=== PATIENT | male | born 1975 | race African-American/Black ===

== ENCOUNTER 2017-02-21 20:32 | Emergency (ER) | payer SELFPAY ==
[~2017-02-21] VITALS: Ht 177.8 cm; Wt 80.0 kg
[2017-02-21 21:00] VITALS: BP 144/81; PULSE 103; RESP 18; TEMP 99.4; O2SAT 97
[2017-02-21] MEDS ORDERED: SODIUM CHLOR 0.9% 1000 ML INJ 1,000 ML IV SCH (21:43)
[2017-02-21] MEDS ORDERED: SODIUM CHLORIDE 0.9% FLUSH 10 ML FLUSH IV FLUSH PRN (21:45)
[2017-02-21] MEDS ORDERED: ONDANSETRON HCL 4 MG/2 ML VIAL IVP ONE (21:45)
--- NOTE | 2017-02-21 21:49 | PD ---
HPI Chief Complaint: Cold / Flu Symptoms Time Seen by Provider: 21:45 Travel History International Travel<30 days: No Contact w/Intl Traveler<30days: No Traveled to known affect area: No History of Present Illness HPI 41-year-old male presents to the emergency department for evaluation of fever, abdominal pain, nausea, vomiting, diarrhea that started on Wednesday. The patient states he believes he has a viral stomach bug. He states he has epigastric abdominal pain as well as lower abdominal pain. He states he has vomited 4 times today has had multiple episodes of diarrhea. He denies any blood in his stool. He states he was short of breath earlier, but denies shortness of breath at this time. No chest pain. He reports no chronic medical problems and takes no prescribed medications. According to EMS, his fever was 101.2 upon their arrival. He received 500 normal saline IV bolus. PFSH Past Medical History Blood Disorders: No Bipolar Disorder: Yes Depression: Yes Cancer: No Cardiovascular Problems: No Endocrine: No Genitourinary: No Immune Disorder: No Musculoskeletal: No Neurologic: No Psychiatric: Yes ( depression due to uncle committing suicide) Reproductive: No Respiratory: No Past Surgical History Other Surgery: No Social History Alcohol Use: No Tobacco Use: No Substance Use: Yes (MARIJUANA) Allergies-Medications (Allergen,Severity, Reaction): Coded Allergies: No Known Allergies (Verified , 10/14/16) Reported Meds & Prescriptions Reported Meds & Active Scripts Active No Active Prescriptions or Reported Medications Review of Systems Except as stated in HPI: all other systems reviewed are Neg Physical Exam Narrative GENERAL: Well-nourished, well-developed male patient, ambulatory. SKIN: Focused skin assessment warm/dry. HEAD: Normocephalic. Atraumatic. EYES: No scleral icterus. No injection or drainage. NECK: Supple, trachea midline. No JVD or lymphadenopathy. CARDIOVASCULAR: Regular rate and rhythm without murmurs, gallops, or rubs. RESPIRATORY: Breath sounds equal bilaterally. No accessory muscle use. Lungs sounds clear to auscultation. GASTROINTESTINAL: Abdomen soft and nondistended. Patient has tenderness over epigastric and right lower quadrant. MUSCULOSKELETAL: No cyanosis, or edema. BACK: Nontender without obvious deformity. No CVA tenderness. Data Data Last Documented VS Vital Signs Date Time Temp Pulse Resp B/P Pulse Ox O2 Delivery O2 Flow Rate FiO2 4/30/17 21:00 99.4 103 18 144/81 97 Room Air Orders Complete Blood Count With Diff (02/21/17 21:43) Comprehensive Metabolic Panel (02/21/17 21:43) Lipase (02/21/17 21:43) Ct Abd/Pel W Iv Contrast(Rout) (02/21/17 21:43) Iv Access Insert/Monitor (02/21/17 21:43) Ecg Monitoring (02/21/17 21:43) Oximetry (02/21/17 21:43) Ondansetron Inj (Zofran Inj) (02/21/17 21:45) Sodium Chlor 0.9% 1000 Ml Inj (Ns 1000 M (02/21/17 21:43) Sodium Chloride 0.9% Flush (Ns Flush) (02/21/17 21:45) Electrocardiogram (02/21/17 21:43) Chest, Single Ap (02/21/17 21:43) Influenzae A/B Antigen (02/21/17 21:43) Labs Laboratory Tests Test 02/21/17 21:30 White Blood Count 10.0 TH/MM3 Red Blood Count 4.09 MIL/MM3 Hemoglobin 12.3 GM/DL Hematocrit 37.1 % Mean Corpuscular Volume 90.7 FL Mean Corpuscular Hemoglobin 30.0 PG Mean Corpuscular Hemoglobin 33.0 % Concent Red Cell Distribution Width 12.8 % Platelet Count 304 TH/MM3 Mean Platelet Volume 8.3 FL Neutrophils (%) (Auto) 83.5 % Lymphocytes (%) (Auto) 11.0 % Monocytes (%) (Auto) 4.9 % Eosinophils (%) (Auto) 0.0 % Basophils (%) (Auto) 0.6 % Neutrophils # (Auto) 8.4 TH/MM3 Lymphocytes # (Auto) 1.1 TH/MM3 Monocytes # (Auto) 0.5 TH/MM3 Eosinophils # (Auto) 0.0 TH/MM3 Basophils # (Auto) 0.1 TH/MM3 CBC Comment DIFF FINAL Differential Comment Sodium Level 138 MEQ/L Potassium Level 3.1 MEQ/L Chloride Level 107 MEQ/L Carbon Dioxide Level 21.0 MEQ/L Anion Gap 10 MEQ/L Blood Urea Nitrogen 11 MG/DL Creatinine 1.36 MG/DL Estimat Glomerular Filtration 69 ML/MIN Rate Random Glucose 90 MG/DL Calcium Level 8.7 MG/DL Total Bilirubin 0.7 MG/DL Aspartate Amino Transf 51 U/L (AST/SGOT) Alanine Aminotransferase 69 U/L (ALT/SGPT) Alkaline Phosphatase 121 U/L Total Protein 7.5 GM/DL Albumin 3.7 GM/DL Lipase 131 U/L [facility] Medical Decision Making Medical Screen Exam Complete: Yes Emergency Medical Condition: Yes Medical Record Reviewed: Yes Interpretation(s) Last Impressions Chest X-Ray 02/21/17 6323 Signed Impressions: Service Date/Time: Tuesday, February 21, 2017 21:53 - CONCLUSION: No acute cardiopulmonary disease. Juan Francisco Day MD Differential Diagnosis Influenza versus viral syndrome versus pancreatitis versus appendicitis versus pneumonia Narrative Course 41-year-old male presents to the emergency department for violation nausea, vomiting, diarrhea, abdominal pain that started 2 days ago. Patient does have epigastric and right lower quadrant tenderness on palpation. EKG, CBC, CMP, lipase, influenza are ordered and pending. Chest x-ray and CT abdomen/pelvis with IV contrast are ordered and pending. CBC shows no acute abnormality. CMP shows hypokalemia at 3.1, creatinine 1.36, AST 51, alkaline phosphatase 121. Lipase is 131. Influenza is negative. Chest x-ray shows no acute cardiopulmonary disease. CT abdomen/pelvis is pending. My attending physician, Dr. Moise, resumed care and disposition of patient. Scripts No Active Prescriptions or Reported Meds Shirley Juarez Feb 21, 2017 21:49
[2017-02-21 21:58] LABS: AUTOMATED NEUTROPHIL # 8.4 TH/MM3 (1.8-7.7); BASOPHIL # 0.1 TH/MM3 (0-0.2); BASOPHIL % 0.6 % (0.0-2.0); HEMATOCRIT 37.1 % (39.0-51.0); HEMO FLAGS DIFF FINAL; LYMPHOCYTE # 1.1 TH/MM3 (1.0-4.8); MEAN CELL VOLUME 90.7 FL (80.0-100.0); MONO % 4.9 % (0.0-8.0); NEUT % 83.5 % (16.0-70.0); PLATELET COUNT 304 TH/MM3 (150-450); RED BLOOD COUNT 4.09 MIL/MM3 (4.50-5.90); RED CELL DISTRIBUTION WIDTH 12.8 % (11.6-17.2)
--- NOTE | 2017-02-21 22:13 | RADRPT ---
EXAM DATE/TIME: 02/21/2017 21:53 [facility] COMPARISON: No previous studies available for comparison. INDICATIONS : Shortness of breath and chest pain. MEDICAL HISTORY : None. SURGICAL HISTORY : None. ENCOUNTER: Initial ACUITY: 3 days PAIN SCORE: 2/10 LOCATION: Bilateral chest FINDINGS: The lungs are clear without infiltrate, nodule, or mass. There is no appreciable pleural effusion fo r technique. Heart and mediastinum are unremarkable. CONCLUSION: No acute cardiopulmonary disease. Juan Francisco Day MD on February 21, 2017 at 22:11 Board Certified Radiologist. This report was verified electronically.
[2017-02-21 22:28] LABS: ANION GAP 10 MEQ/L (5-15); AST (GOT) 51 U/L (15-37); BLOOD UREA NITROGEN 11 MG/DL (7-18); CHLORIDE 107 MEQ/L (98-107); GLOMERULAR FILTRATION RATE 69 ML/MIN (>89); POTASSIUM 3.1 MEQ/L (3.5-5.1); SODIUM (NA) 138 MEQ/L (136-145)
[2017-02-21 22:31] LABS: ALKALINE PHOSPHATASE 121 U/L (45-117); ALT (GPT) 69 U/L (12-78); TOTAL BILIRUBIN ADULT 0.7 MG/DL (0.2-1.0)
[2017-02-21] MEDS ORDERED: POTASSIUM CHLORIDE 20 MEQ CONTROLLED RELEASE TAB PO ONE (23:15)
[2017-02-21 23:43] VITALS: BP 124/74; PULSE 93; RESP 18; O2SAT 97
[2017-02-22] MEDS ORDERED: ZOFR4TAB3 SL (00:08)
--- NOTE | 2017-02-22 00:10 | PD ---
Physical Exam Narrative General: The patient is a well-developed well-nourished male in no acute distress Head and Neck exam: Head is normocephalic atraumatic. Eyes: EOMI, pupils are equal round and reactive to light. Nose: Midline septum with pink mucous membranes Mouth: Dentition unremarkable. Moist mucus membranes. Posterior oropharynx is not erythematous. No tonsillar hypertrophy. Uvula midline. Airway patent. Neck: No palpable lymphadenopathy. No nuchal rigidity. No thyromegaly. Cardiovascular: Regular rate and rhythm without murmurs, gallops, or rubs. Lungs: Clear to auscultation bilaterally. No wheezes, rhonchi, or rales. Abdomen: Soft, without tenderness to palpation in all 4 quadrants of the abdomen. No guarding, rebound, or rigidity. Normal bowel sounds are audible. No tenderness on palpation of McBurney's point. Negative Lennox sign. Extremities: No clubbing, cyanosis, or edema. 2+ pulses in all 4 extremities. Back: No costovertebral angle tenderness to palpation. Neurologic Exam: Grossly nonfocal. Skin Exam: No rash noted. Intact skin that is warm and dry. Data Data Last Documented VS Vital Signs Date Time Temp Pulse Resp B/P Pulse Ox O2 Delivery O2 Flow Rate FiO2 02/21/17 23:43 93 18 124/74 97 Room Air 02/21/17 21:00 99.4 Orders Complete Blood Count With Diff (02/21/17 21:43) Comprehensive Metabolic Panel (02/21/17 21:43) Lipase (02/21/17 21:43) Ct Abd/Pel W Iv Contrast(Rout) (02/21/17 21:43) Iv Access Insert/Monitor (02/21/17 21:43) Ecg Monitoring (02/21/17 21:43) Oximetry (02/21/17 21:43) Ondansetron Inj (Zofran Inj) (02/21/17 21:45) Sodium Chlor 0.9% 1000 Ml Inj (Ns 1000 M (02/21/17 21:43) Sodium Chloride 0.9% Flush (Ns Flush) (02/21/17 21:45) Electrocardiogram (02/21/17 21:43) Chest, Single Ap (02/21/17 21:43) Influenzae A/B Antigen (02/21/17 21:43) Potassium Chloride (Kcl) (02/21/17 23:15) Sodium Chlor 0.9% 1000 Ml Inj (Ns 1000 M (02/22/17 00:15) Oral Rehydration (02/22/17 00:10) Labs Laboratory Tests Test 02/21/17 21:30 White Blood Count 10.0 TH/MM3 Red Blood Count 4.09 MIL/MM3 Hemoglobin 12.3 GM/DL Hematocrit 37.1 % Mean Corpuscular Volume 90.7 FL Mean Corpuscular Hemoglobin 30.0 PG Mean Corpuscular Hemoglobin 33.0 % Concent Red Cell Distribution Width 12.8 % Platelet Count 304 TH/MM3 Mean Platelet Volume 8.3 FL Neutrophils (%) (Auto) 83.5 % Lymphocytes (%) (Auto) 11.0 % Monocytes (%) (Auto) 4.9 % Eosinophils (%) (Auto) 0.0 % Basophils (%) (Auto) 0.6 % Neutrophils # (Auto) 8.4 TH/MM3 Lymphocytes # (Auto) 1.1 TH/MM3 Monocytes # (Auto) 0.5 TH/MM3 Eosinophils # (Auto) 0.0 TH/MM3 Basophils # (Auto) 0.1 TH/MM3 CBC Comment DIFF FINAL Differential Comment Sodium Level 138 MEQ/L Potassium Level 3.1 MEQ/L Chloride Level 107 MEQ/L Carbon Dioxide Level 21.0 MEQ/L Anion Gap 10 MEQ/L Blood Urea Nitrogen 11 MG/DL Creatinine 1.36 MG/DL Estimat Glomerular Filtration 69 ML/MIN Rate Random Glucose 90 MG/DL Calcium Level 8.7 MG/DL Total Bilirubin 0.7 MG/DL Aspartate Amino Transf 51 U/L (AST/SGOT) Alanine Aminotransferase 69 U/L (ALT/SGPT) Alkaline Phosphatase 121 U/L Total Protein 7.5 GM/DL Albumin 3.7 GM/DL Lipase 131 U/L [facility] Medical Record Reviewed: Yes Supervised Visit with JOSELIN: No Narrative Course During the course of the patients emergency department visit, the patients history, examination, and differential diagnosis were reviewed with the patient. The patient had IV access obtained and blood work sent for analysis. The patient was placed on a court monitor with oximetry and blood pressure monitoring. The patient was initially evaluated by Shirley. Please see her complete history and physical. The patient's case was checked out to me once the patient was brought back to a medical room. Shirley had ordered a CT scan of the abdomen and pelvis, however when the CT tach attempted to pickling grader the patient to transport to CT the patient refused to have the CT done. He reports that he does not want to have this done as he knows that he just has a stomach virus as his daughter had similar symptoms. The patient was initially provided normal saline 1 L IV fluid bolus, Zofran 4 mg IV. The patient was given potassium 40 mEq by mouth 1 for hypokalemia. The patients laboratory studies were reviewed and remarkable for a white count of 10, hemoglobin 12.3, platelets 304 with 83.5, CMP is remarkable for a potassium at 3.1 which was supplemented orally, creatinine 1.36, AST 51, alkaline phosphatase 121. The patient was started on oral rehydration therapy. The patient was able to tolerate this well. The patient will be discharged home to follow-up with his primary care physician. The patient was given a prescription for Zofran at discharge. The patient is resting comfortably and feels better, is alert and in no distress. The patients results and examination findings were discussed with the patient. The repeat examination is unremarkable and benign. The history, exam, diagnostic testing, and current condition do not suggest any significant pathology to warrant further testing, continued ED treatment, admission, or surgical evaluation at this point. The vital signs have been stable. The patient does not have uncontrollable pain, intractable vomiting, or other significant symptoms. The patient's condition is stable and appropriate for discharge. The patient will pursue further outpatient evaluation with a primary care physician or other designated or consulting physician as indicated in the discharge instructions. The patient expressed understanding and was agreeable with this plan. Diagnosis Primary Impression: Nausea, vomiting, and diarrhea Referrals: Primary Care Physician 3 days Patient Instructions: Acute Diarrhea (ED), Acute Nausea and Vomiting (ED), General Instructions Med/Other Pt SpecificInfo: Prescription(s) given Scripts Ondansetron Odt (Zofran Odt)4 Mg Tab4 Mg SL Q6HR PRN (Nausea/Vomiting) #7 TAB Ref 0 Prov:Janie Moise MD 02/22/17 Disposition: 01 DISCHARGE HOME Condition: Stable Janie Moise MD February 22, 2017 00:09
[2017-02-22] MEDS ORDERED: SODIUM CHLOR 0.9% 1000 ML INJ 1,000 ML IV ONE (00:15)
[2017-02-22 00:54] VITALS: BP 156/84
--- NOTE | 2017-02-22 22:50 | EKG ---
Date Performed: 02/21/2017 Time Performed: 22:46:55 PTAGE: 41 years EKG: Sinus rhythm NORMAL ECG NO PREVIOUS TRACING DOCTOR: Max Begum Interpretating Date/Time 02/22/2017 22:48:34
== END 2017-02-22 01:03 | disposition home or self-care (01) ==
LOC: NEPE 20:32
DX: R11.2 Nausea with vomiting, unspecified (principal); R19.7 Diarrhea, unspecified; R10.30 Lower abdominal pain, unspecified; R10.13 Epigastric pain; F12.90 Cannabis use, unspecified, uncomplicated
CPT/HCPCS: 71010; 80053; 83690; 85025; 87804; 93005; 96361; 96374; 99284; J2405; J7030